=== PATIENT | male | born 1960 | race African-American/Black ===

== ENCOUNTER 2020-05-18 04:27 | Emergency (ER) | payer MEDICARE ==
[~2020-05-18] VITALS: Ht 182.9 cm; Wt 81.8 kg
[2020-05-18 04:40] VITALS: TEMP 99.9
[2020-05-18 04:47] LABS: BASO # 0.1 (0.0-0.2); BASO % 0.3 % (0.0-2.0); EOS # 0.1 (0.0-0.7); EOS % 0.7 % (0-4.0); GRAN # 12.2 (1.4-6.5); GRAN % 80.1 % (42.2-75.2); HEMATOCRIT 40.1 % (42.0-52.0); HEMOGLOBIN 13.7 g/dl (13.5-18.0); LYMPH # 1.4 (1.2-3.4); LYMPH % 9.2 % (20.0-51.0); MEAN CELL VOLUME 95 fl (80.0-100.0); MEAN CORPUSCULAR HEMOGLOBIN 33 pg (27.0-31.0); MEAN CORPUSCULAR HGB CONC 34 g/dl (33.0-37.0); MEAN PLATELET VOLUME 10.1 fl (7.4-10.4); MONO # 1.4 (0.1-0.6); MONO % 9.2 % (1.7-9.3); PLATELET COUNT 241 K/mm3 (130-400); RED BLOOD COUNT 4.21 M/mm3 (4.20-5.60); REDCELL DISTRIBUTION WIDTH-CV 13.8 % (11.5-14.5)
[2020-05-18 05:00] LABS: ALBUMIN 4.1 gm/dL (3.5-5.0); BILIRUBIN,TOTAL 0.4 mg/dL (0.0-1.0); C-REACTIVE PROTEIN 8.9 mg/dL (0.0-0.9); CALCIUM 8.8 mg/dL (8.4-10.2); CREATININE, serum 1.13 (0.66-1.25); TOTAL PROTEIN 7.9 gm/dL (6.4-8.2)
[2020-05-18] MEDS ORDERED: DOXYCYCLINE 10100 MG PO (07:23)
[2020-05-18] MEDS ORDERED: PERCOCET 325 MG1 TA3 PO (07:23)
[2020-05-18 08:43] LABS: COLLECTION METHOD CLEAN CATCH
[2020-05-18 08:54] LABS: PH 5 (5-8); SQUAMOUS EPITHELIAL 0-2 /hpf; URINE APPEARANCE Clear; URINE BACTERIA None Seen /hpf; URINE BILIRUBIN Negative (NEGATIVE); URINE BLOOD 2+ (NEGATIVE); URINE COLOR Yellow; URINE GLUCOSE Negative (NEGATIVE); URINE KETONE Negative (NEGATIVE); URINE LEUKOCYTE ESTERASE Trace (NEGATIVE); URINE NITRATE Negative (NEGATIVE); URINE PROTEIN(semi-quant) Negative (NEGATIVE); URINE RBC 20-50 /hpf; URINE UROBILINOGEN Negative (NEGATIVE)
[2020-05-18 09:55] VITALS: BP 110/65; PULSE 72
[2020-05-19] MEDS ORDERED: LEVAQUIN 750MG750 M1 PO (03:19)
== END 2020-05-18 09:50 | disposition home or self-care (01) ==
LOC: COL.ER 04:27
PROVIDERS: Emergency Medicine
DX: N45.1 Epididymitis (principal)
CPT/HCPCS: J0696; J1170; J2250; J3010; J7030; Q9967

== ENCOUNTER 2024-03-06 14:15 | Emergency (ER) | payer MEDICARE ==
[~2024-03-06] VITALS: Ht 182.9 cm; Wt 78.2 kg
[~2024-03-06 14:15] MED LIST: DOXYCYCLINE 10100 MG PO; FLEXERIL 1010 MG/TAB PO; LEVAQUIN 750MG750 M1 PO; LIDODERM 5% PATC1 EA TP; MOBIC15 MG PO; PERCOCET 325 MG1 TA3 PO; ROXICODONE 55 MG/TAB PO
[2024-03-06 14:23] VITALS: TEMP 98.4
[2024-03-06 14:44] LABS: BASO # 0.1 K/mm3 (0.0-0.2); BASO % 0.7 % (0.0-2.0); EOS # 0.2 K/mm3 (0.0-0.7); EOS % 2.4 % (0.0-4.0); GRAN # 4.8 K/mm3 (1.4-6.5); GRAN % 63.9 % (42.2-75.2); HEMATOCRIT 41.9 % (42.0-52.0); HEMOGLOBIN 14.4 g/dl (13.5-18.0); LYMPH # 1.8 K/mm3 (1.2-3.4); LYMPH % 24.4 % (20.0-51.0); MEAN CELL VOLUME 92 fl (80.0-100.0); MEAN CORPUSCULAR HEMOGLOBIN 32 pg (27-31); MEAN CORPUSCULAR HGB CONC 34 g/dl (33.0-37.0); MEAN PLATELET VOLUME 9.6 fl (7.4-10.4); MONO # 0.6 K/mm3 (0.1-0.6); MONO % 8.2 % (1.7-9.3); PLATELET COUNT 271 K/mm3 (130-400); RED BLOOD COUNT 4.56 M/mm3 (4.20-5.60); REDCELL DISTRIBUTION WIDTH-CV 13.8 % (11.5-14.5)
[2024-03-06] MEDS ORDERED: Morphine 4 MG/ML VIAL IV ONE (14:45)
[2024-03-06 15:17] LABS: ALANINE AMINOTRANSFERASE 11 U/L (0-55); ALKALINE PHOSPHATASE 81 U/L (40-150); ANION GAP 12 mmol/L (7-16); AST,SGOT 15 U/L (5-34); BILIRUBIN,TOTAL 0.5 mg/dL (0.2-1.2); BLOOD UREA NITROGEN 15 mg/dL (8-26); CALCIUM 9.4 mg/dL (8.4-10.2); CHLORIDE 106 mEq/L (98-107); CREATININE, serum 1.06 mg/dL (0.72-1.25); GLUCOSE 145 mg/dL (70-99); POTASSIUM 3.9 mEq/L (3.5-4.5); SODIUM 141 mEq/L (136-145); TOTAL PROTEIN 7.8 g/dl (6.2-8.1)
[2024-03-06 15:22] LABS: TROPONIN-I < 0.010 ng/mL (0.00-0.033)
[2024-03-06] MEDS ORDERED: Iohexol 300 - 100 ML VIAL IV ONE (15:39)
[2024-03-06] MEDS ORDERED: NS 100 ML IV SCH (15:40)
[2024-03-06] MEDS ORDERED: MOBIC15 MG PO (16:01)
[2024-03-06] MEDS ORDERED: NORCO 325 MG-51 TAB PO (16:02)
[2024-03-06 16:14] VITALS: BP 138/86; PULSE 68
== END 2024-03-06 16:20 | disposition home or self-care (01) ==
LOC: COL.ER 14:15
PROVIDERS: Physician Assistant
DX: S22.42XD Multiple fractures of ribs, left side, subsequent encounter for fracture with routine healing (principal); S22.20XD Unspecified fracture of sternum, subsequent encounter for fracture with routine healing; F17.200 Nicotine dependence, unspecified, uncomplicated; V18.9XXD Unspecified pedal cyclist injured in noncollision transport accident in traffic accident, subsequent encounter
CPT/HCPCS: Q9967